=== PATIENT | male | born 1940 | race Caucasian/White ===

== ENCOUNTER → 2017-04-05 | Outpatient (CLI) | payer MEDICARE ==
[~2017-04-05] MED LIST: BETAPACE (GENER80 MG PO; COUMADIN ** 9/62 MG PO; FLORINEF0.1 MG PO; K-TAB 10MEQ10 MEQ PO; LASIX20 MG PO; LEVOTHROID (SY50 MCG PO; LIPITOR20 M1 PO; LOVENOX 6060 MG/0.6 SUB-Q; MIRALAX17 GM PO; NORCO 5-325 TA1 EACH PO; PLAVIX75 MG PO; PROTONIX40 MG PO; SINEMET 25-1001 EACH PO; ULTRAM50 MG PO; VITAMIN D32000 UNIT PO
== END | disposition disaster alternative care site (69) ==
LOC: GOPD 04-02 14:00 → GRAD 05:54 → GOPD 06:00 → GRAD 08:00
DX: C83.18 Mantle cell lymphoma, lymph nodes of multiple sites (principal); J92.9 Pleural plaque without asbestos; J90 Pleural effusion, not elsewhere classified; R31.29 Other microscopic hematuria; R13.10 Dysphagia, unspecified; R06.02 Shortness of breath; R06.00 Dyspnea, unspecified
CPT/HCPCS: J7030

== ENCOUNTER → 2017-06-08 | Outpatient (CLI) | payer MEDICARE | END | disposition disaster alternative care site (69) | LOC: GRAD 06:55 | DX: C83.18 Mantle cell lymphoma, lymph nodes of multiple sites (principal); K59.00 Constipation, unspecified; K76.89 Other specified diseases of liver; M47.896 Other spondylosis, lumbar region; M41.9 Scoliosis, unspecified; R11.0 Nausea; R31.29 Other microscopic hematuria; R06.02 Shortness of breath; R13.10 Dysphagia, unspecified; R06.00 Dyspnea, unspecified ==